=== PATIENT | female | born 1985 | race Caucasian/White ===

== ENCOUNTER 2018-08-21 21:25 | Emergency (ER) | payer BC ==
[2018-08-21] MEDS ORDERED: FAMOTIDINE INJ/PF 20 MG/2 ML SDV IV ONE (21:41)
[2018-08-21] MEDS ORDERED: DEXAMETHASONE SOD PHOS INJ 10 MG/1 ML VIAL IV ONE (21:41)
[2018-08-21] MEDS ORDERED: EPINEPHRINE INJ/PF 1 MG/1 ML AMPULE IM ONE ×3 (21:41→23:28)
[2018-08-21] MEDS ORDERED: NORMAL SALINE 1000 ML 1,000 ML IV ONE (21:42)
--- NOTE | 2018-08-21 21:42 | ER Document Report ---
ED General - General Chief Complaint: Allergic Reaction Stated Complaint: ALLERGIC REACTION Time Seen by Provider: 08/21/18 21:40 Notes: Patient is a 33-year-old female with a past medical history of anaphylactic reactions who presents with diffuse hives and difficulty breathing. States that her symptoms started approximately 1 hour prior to arrival. States that the symptoms came on abruptly without triggering. She self-administered Benadryl and epinephrine injection with no significant improvement prompting her to come to the emergency department. Patient states that she is had similar allergic reactions in the past but they usually respond to epinephrine. Symptoms are regarded as severe, constant, diffuse pruritus and mild to moderate difficulty breathing. No vomiting, diarrhea, abdominal cramping or syncope. TRAVEL OUTSIDE OF THE [place] IN LAST 30 DAYS: No - Related Data Allergies/Adverse Reactions: morphine Allergy (Mild, Verified 08/21/18 21:28) vancomycin Allergy (Mild, Verified 08/21/18 21:27) Past Medical History - General Information source: Patient - Social History Smoking Status: Never Smoker Frequency of alcohol use: None Drug Abuse: None Family History: Reviewed & Not Pertinent Review of Systems - Review of Systems Notes: Constitutional: Negative for fever. HENT: Negative for sore throat. Eyes: Negative for visual changes. Cardiovascular: Negative for chest pain. Respiratory: Positive for shortness of breath. Gastrointestinal: Negative for abdominal pain, vomiting or diarrhea. Genitourinary: Negative for dysuria. Musculoskeletal: Negative for back pain. Skin: Positive for rash. Neurological: Negative for headaches, weakness or numbness. 10 point ROS negative except as marked above and in HPI. Physical Exam - Vital signs Vitals: Temp Pulse Resp BP Pulse Ox 97.6 F 123 H 26 H 133/85 H 97 08/21/18 21:28 08/21/18 21:28 08/21/18 21:28 08/21/18 21:28 08/21/18 21:28 Interpretation: Tachycardic, Tachypneic Notes: PHYSICAL EXAMINATION: GENERAL: Appears mildly unwell, no overt distress HEAD: Atraumatic, normocephalic. EYES: Pupils equal round and reactive to light, extraocular movements intact, sclera anicteric, conjunctiva are normal. ENT: nares patent, oropharynx clear without exudates. Moist mucous membranes. No oropharyngeal edema NECK: Normal range of motion, supple without lymphadenopathy LUNGS: Breath sounds clear to auscultation bilaterally and equal. No wheezes rales or rhonchi. HEART: Regular tachycardia without murmurs ABDOMEN: Soft, nontender, normoactive bowel sounds. No guarding, no rebound. No masses appreciated. EXTREMITIES: Normal range of motion, no pitting or edema. No cyanosis. NEUROLOGICAL: No focal neurological deficits. Moves all extremities spontaneously and on command. PSYCH: Normal mood, normal affect. SKIN: Warm, Dry, normal turgor, diffuse urticarial lesions over the face, chest, back, bilateral upper extremities Course - Re-evaluation Re-evalutation: 08/21/18 21:40 Patient presents covered diffusely and urticaria, has Reinier self-administered epinephrine prior to coming to the hospital. States that she was having wheezing and tightness of her throat at that time which has apparently improved after the initial dose of epinephrine that she self-administered. She has however covered diffusely in hives, remains tachycardic and complains of ongoing shortness of breath although does not have stridor or wheezing on exam. The patient will receive an additional dose of epinephrine 0.5 mg IM, IV will be established and dexamethasone, famotidine and Benadryl will be administered. Will continue to reassess at regular intervals. 08/21/18 22:17 Patient's hives persist although she is no longer short of breath. Saturating 100% on room air. In no distress. A second dose of epinephrine will be administered. 08/21/18 23:29 Patient is having significant improvement of her hives although they are not completely resolved. An additional dose of intramuscular epinephrine 0.5 mg will be administered. Will continue to reassess. 08/22/18 00:42 Patient has had resolution of hives, completely asymptomatic at this point. Feels comfortable going home. Already has extra EpiPen pens at home. At this time will discharge with return precautions and follow-up recommendations. Verbal discharge instructions given a the bedside and opportunity for questions given. Medication warnings reviewed. Patient is in agreement with this plan and has verbalized understanding of return precautions and the need for primary care follow-up in the next 24-72 hours. - Vital Signs Vital signs: Temp Pulse Resp BP Pulse Ox 97.6 F 123 H 25 H 138/66 H 96 08/21/18 21:28 08/21/18 21:28 08/22/18 00:51 08/22/18 00:51 08/22/18 00:51 Critical Care Note - Critical Care Note Total time excluding time spent on procedures (mins): 36 Comments: Critical care time spent obtaining history from patient or surrogate, development of treatment plan with patient or surrogate, evaluation of patient's response to treatment, examination of patient, ordering and performing treatments and interventions, re-evaluation of patient's condition Discharge - Discharge Clinical Impression: Urticaria, Shortness of breath Anaphylaxis Qualifiers: Encounter type: initial encounter Qualified Code(s): T78.2XXA - Anaphylactic shock, unspecified, initial encounter Condition: Good Disposition: HOME, SELF-CARE Additional Instructions: IF YOU DEVELOP DIFFICULTY BREATHING, RETURN OF HIVES, VOMITING, LIGHTHEADEDNESS, GIVE YOURSELF THE EPINEPHRINE SHOT IMMEDIATELY AND CALL 911. NEVER HESITATE TO GIVE YOURSELF THE EPINEPHRINE THIS CAN SAVE YOUR LIFE IF YOU ARE HAVE A SERIOUS ALLERGIC REACTION.
[2018-08-22 01:02] VITALS: BP 138/66
== END 2018-08-22 01:05 | disposition home or self-care (01) ==
LOC: ER 21:25
DX: T78.2XXA Anaphylactic shock, unspecified, initial encounter (principal); L50.9 Urticaria, unspecified; R06.02 Shortness of breath; R00.0 Tachycardia, unspecified; Z88.5 Allergy status to narcotic agent; Z88.1 Allergy status to other antibiotic agents
CPT/HCPCS: 99291; 96372; 96361; 96374; 96375; J0171; J7030; S0028; J1100